=== PATIENT | male | born 1975 | race Caucasian/White ===

== ENCOUNTER 2016-07-18 10:40 | Emergency (ER) | payer BC ==
[2015-07-21 10:06] VITALS: BMI 27.2
[~2016-07-18 10:40] MED LIST: ADDERALL 30 MG30 MG PO; ENDOCET 10-3251 TAB PO; FLUTICASONE PRO16 GM NASAL; HYDROCODONE-APA1 TAB PO; NIFEDIPINE ER60 MG PO; NIFEDIPINE TAB 60M; SOMA350 MG PO; TESTOSTERON200 MG/ML IM; VOLTAREN25 MG PO; ZORVOLEX PO
[2016-07-18 21:05] LABS: BASOPHILS 0.2 % (0-2); EOSINOPHILS 1.6 % (0-7); HEMATOCRIT 46.3 % (42.0-54.0); HEMOGLOBIN 15.6 g/dL (13.5-17.5); IMMATURE GRANULOCYTES 0.4 % (0-5); LYMPHOCYTES 27.2 % (15-50); MCHC 33.7 g/dL (31.0-37.0); MCV 95.1 fL (80.0-100.0); MEAN PLATELET VOLUME 9.5 fL (7.4-10.4); MONOCYTES 9.8 % (2-11); NEUTROPHILS 60.8 % (40-80); PLATELET COUNT 225 10x3/uL (130-400); RBC 4.87 10x6/uL (4.20-6.10); RDW 13.3 % (11.5-14.5)
[2016-07-18 21:23] LABS: ALBUMIN 4.2 g/dL (3.4-5.0); ANION GAP 9.9 mmol/L (8-16); BILIRUBIN - TOTAL 0.47 mg/dL (0.2-1.3); CALCIUM 8.8 mg/dL (8.5-10.1); CREATININE - SERUM 1.2 mg/dL (0.6-1.3); POTASSIUM - SERUM 3.9 mmol/L (3.5-5.1); PROTEIN - SERUM 7.3 g/dL (6.4-8.2)
[2016-07-18 21:27] LABS: APPEARANCE CLEAR (CLEAR); BILIRUBIN NEGATIVE (NEGATIVE); COLOR YELLOW (YELLOW); GLUCOSE NEGATIVE (NEGATIVE); KETONE NEGATIVE (NEGATIVE); LEUKOCYTE ESTERASE NEGATIVE (NEGATIVE); NITRITE NEGATIVE (NEGATIVE); PROTEIN NEGATIVE (NEGATIVE); UROBILINOGEN NORMAL (NORMAL)
[2016-07-18 21:33] LABS: THYROID STIMULATING HORMONE 3.67 uIU/mL (0.36-3.74)
[2016-07-18 21:37] LABS: UDS - AMPHET NEGATIVE QUAL (NEGATIVE); UDS - BARB NEGATIVE QUAL (NEGATIVE); UDS - BENZO NEGATIVE QUAL (NEGATIVE); UDS - COCAINE NEGATIVE QUAL (NEGATIVE); UDS - METH NEGATIVE QUAL (NEGATIVE); UDS - OPIATE NEGATIVE QUAL (NEGATIVE); UDS - PCP NEGATIVE QUAL (NEGATIVE); UDS - THC NEGATIVE QUAL (NEGATIVE)
== END 2016-07-19 01:44 | disposition short-term general hospital (02) ==
LOC: D.ER 10:40
PROVIDERS: Nurse Practitioner Family
DX: F41.9 Anxiety disorder, unspecified (principal); F32.9 Major depressive disorder, single episode, unspecified; R45.851 Suicidal ideations; I10 Essential (primary) hypertension

== ENCOUNTER 2016-12-07 15:26 | Day surgery (SDC) | payer BC ==
[2016-12-07] MEDS ORDERED: NIFEDIPINE ER 60 MG (16:04)
[2016-12-07] MEDS ORDERED: TOPROL XL50 MG PO (16:04)
[2016-12-07] MEDS ORDERED: DESERYL100 MG PO (16:06)
[2016-12-07] MEDS ORDERED: CARDURA4 MG PO (16:06)
[2016-12-07 16:07] VITALS: BP 124/67; BMI 29.3
[2016-12-07 17:14] LABS: HEMATOCRIT 46.3 % (42.0-54.0); HEMOGLOBIN 16.2 g/dL (13.5-17.5); MCH 32.3 pg (26.0-34.0); MCV 92.2 fL (80.0-100.0); MEAN PLATELET VOLUME 12.7 fL (7.4-10.4); RBC 5.02 10x6/uL (4.20-6.10); RDW 12.7 % (11.5-14.5); WBC 8.8 10x3/uL (4.8-10.8)
[2016-12-07 19:48] VITALS: BP 110/75
--- NOTE | 2016-12-07 19:57 | NUR ---
PATIENT RECEIVED FROM RECOVERY IN NO APPERNT DISTRESS. 22G PIV IN LEFT HAND WITH NS INSUSING @ HALF OPEN. HE DID REQUEST JELLO AND PUDDING. AT BEDSIDE. WILL CONTINUE TO MONITOR.
[2016-12-07 20:13] VITALS: BP 113/71
--- NOTE | 2016-12-07 20:20 | NUR ---
22G PIV D/C FROM LEFT HAND WITH CATH INTACT.
--- NOTE | 2016-12-07 20:51 | NUR ---
WENT OVER DISCHARGE INSTRUCTIONS. ALL QUESTIONS ANSWERED. PATIENT WILL DISCHARGE HOME WITH SPOUSE. COPY OF PRESCRIPTIONS WERE MADE. PATIENT WILL BE ESCORTED DOWNSTAIRS FOR DISCHARGE.
--- NOTE | 2016-12-11 11:05 | OP ---
PATIENT NAME: RASHID KERR MEDICAL RECORD: [id number] :77 LOCATION:[facility] ADMISSION DATE: SURGEON: AYALA COVARRUBIAS MD DATE OF OPERATION: 12/07/2016 SURGEON: Ayala Covarrubias MD ANESTHESIA: General anesthesia by Jamee Singh. PREOPERATIVE DIAGNOSIS: Right distal ureteral 4 mm stone. FINDINGS: Radiolucent right distal ureteral stone. PROCEDURES: Cystoscopy, right ureteroscopy and stone extraction, right ureteral stent insertion 6-Trinidadian x 24 cm with string attached. SPECIMENS: Right ureteral stone. BLOOD LOSS: None. CLINICAL HISTORY: This is a 41-year-old male with a previous history of kidney stones. He presented to the Emergency Room with acute right flank pain since last night. He has not eaten anything since last night. A CT scan was performed and it showed a punctate right renal stone. There was hydroureteronephrosis down to a right distal ureteral 4 mm stone. He comes now to have the stone removed by ureteroscopy. He is not allergic to any medications and he was given [employer] business consultant to the OR. DESCRIPTION OF PROCEDURE: The patient was given induction of general anesthesia. He was then placed in the dorsal lithotomy position and prepped and draped. A 21-Trinidadian cystoscope with 30-degree lens was used for visualization. He had also received Uro-Jet lidocaine jelly after prepping. Prostate is nonobstructive. He has single ureteral orifices on each side. I could not see a stone on fluoroscopy. We inserted a 5-Trinidadian open-ended ureteral catheter and performed a retrograde pyelogram. This showed right-sided hydroureteronephrosis, but it was still not clear where the stone was located. We inserted a Sensor wire up the lumen of the ureteral catheter up to the kidney. The ureteral catheter was then removed, leaving the wire in place. Over the wire, we inserted a 21-Trinidadian x 4 cm ureteral dilation balloon. This balloon was used to dilate the right ureteral orifice to 16 atmospheres of pressure. This was maintained for a few seconds and then the balloon was deflated. The balloon was then removed entirely. The rigid ureteroscope was used to enter the ureter. We found the stone under direct vision, we placed a 4-wire 0-tip basket around it. The entire stone was removed with the ureteroscope as a unit. The wire was backloaded into the cystoscope. The stent was then put over the wire into the kidney. Once the stent was in correct position, the distal end was pushed into the bladder using a pusher. The wire was entirely withdrawn. The string on the distal end of the stent was maintained. The bladder was emptied through the cystoscope and then the cystoscope was removed. The string was tied to itself in a knot and cut shorter. It does hangs out of the urethra. We will use it next week to remove his ureteral stents. TRANSINT:[id number] Voice Confirmation ID: [id number] DOCUMENT ID: [id number] OPERATIVE REPORT [id number] CIRILO,RASHID COVARRUBIAS, AYALA Seals MD at 1105 CC: [id number] DICTATION DATE: 12/07/161908 PROFESSIONAL ARCHITECT: 12/07/16 [id number] [facility] 12/07/16 [facility] [address] [place] [address]
[2016-12-21 18:09] LABS: CALCULI - CA OXALATE DIHYDRATE 20 % (()); CALCULI - CA OXALATE MONOHYDR 75 % (()); CALCULI - COLOR Brown (()); CALCULI - SIZE 4x3x2 mm (())
== END 2016-12-07 21:00 | disposition home or self-care (01) ==
LOC: D.OPS 15:26 → D.MS 19:31 → D.OPS 21:00
PROVIDERS: Anesthesiology; Urology
DX: N20.2 Calculus of kidney with calculus of ureter (principal); I10 Essential (primary) hypertension; Z87.891 Personal history of nicotine dependence; Z01.812 Encounter for preprocedural laboratory examination